=== PATIENT | male | born 1960 | race Caucasian/White ===

== ENCOUNTER → 2016-08-28 | Outpatient (CLI) | payer MEDICARE, BC ==
[2016-08-28 11:25] LABS: Anion Gap 9 mmol/L; Blood Urea Nitrogen 22 mg/dL (9-20); Carbon Dioxide 25 mmol/L (22-30); Chloride 111 mmol/L (98-107); Non-African American GFR(MDRD) >60 (>60 ml/min/1.73 sqM); Potassium 4.9 mmol/L (3.5-5.1); Sodium 145 mmol/L (137-145)
== END | disposition home or self-care (01) ==
LOC: LABWHC1 10:52
PROVIDERS: ATTEND Internal Medicine Clinical Cardiac Electrophysiology
DX: I47.2 Ventricular tachycardia (principal)
CPT/HCPCS: 36415; 80051; 82565; 84520

== ENCOUNTER → 2017-03-17 | Outpatient (CLI) | payer MEDICARE, BC ==
[2017-03-17 12:16] LABS: CH 31.2; CHCM 33.2; HCT 46.1 % (39.0-53.0); HDW 2.28; HGB 15.6 gm/dL (13.0-17.5); MCH 32.1 pg (25.0-35.0); MCHC 33.9 g/dL (31.0-37.0); MCV 94.6 fL (80.0-100.0); Mean Platelet Volume 7.9; RBC 4.88 m/uL (4.30-5.90); WBC 7.8 k/uL (3.8-10.6)
[2017-03-17 12:29] LABS: Anion Gap 8 mmol/L; Blood Urea Nitrogen 15 mg/dL (9-20); Calcium 9.3 mg/dL (8.4-10.2); Carbon Dioxide 26 mmol/L (22-30); Chloride 108 mmol/L (98-107); Glucose 98 mg/dL (74-99); Non-African American GFR(MDRD) >60 (>60 ml/min/1.73 sqM); Potassium 4.8 mmol/L (3.5-5.1); Sodium 142 mmol/L (137-145)
== END | disposition home or self-care (01) ==
LOC: LABWHC1 11:20
PROVIDERS: ATTEND Internal Medicine Clinical Cardiac Electrophysiology
DX: I47.2 Ventricular tachycardia (principal)
CPT/HCPCS: 36415; 80048; 85027

== ENCOUNTER 2017-03-31 06:04 | Day surgery (SDC) | payer MEDICARE, BC ==
[~2017-03-31 06:04] MED LIST: LACTATED RINGERS 1,000 ML IV SCH
[2017-03-31] MEDS ORDERED: ceFAZolin 2 GM in SODIUM CHLORIDE 0.9% 100 ML IVPB ONE (06:15)
[2017-03-31] MEDS ORDERED: SODIUM CHLORIDE 0.9% 1,000 ML IV ONE (06:39)
[2017-03-31] MEDS ORDERED: KETAMINE 10 MG/ML 20 ML VIAL ONE (07:23)
[2017-03-31] MEDS ORDERED: ePHEDrine SULFATE/0.9% NACL/PF 50 MG/5 ML SYRINGE IV ONE (07:23)
[2017-03-31] MEDS ORDERED: PROPOFOL 10 MG/ML 20 ML VIAL IV ONE (07:23)
[2017-03-31] MEDS ORDERED: fentaNYL (PF) 50 MCG/ML 2 ML AMP ONE (07:23)
[2017-03-31] MEDS ORDERED: MIDAZOLAM 2 MG/2 ML VIAL ONE (07:23)
[2017-03-31] MEDS ORDERED: IOHEXOL 350 MG/ML 50ML BOTTLE INJ ONE (07:57)
[2017-03-31] MEDS ORDERED: VANCOMYCIN 2,000 MG in SODIUM CHLORIDE 0.9% 500 ML IVPB STA (08:08)
[2017-03-31] MEDS: ceFAZolin 1,000 MG in SODIUM CHLORIDE 0.9% IRRIGATIO 250 ML IRRIGATION ONE ×2 (08:19→08:58)
[2017-03-31] MEDS ORDERED: LIDOCAINE 1% INJ 10MG/ML (20 ML MDV) SQ ONE (08:22)
[2017-03-31] MEDS: LIDOCAINE 1% INJ 10MG/ML (20 ML MDV) SQ ONE ×2 (08:28→08:33)
[2017-03-31] MEDS ORDERED: ACETAMINOPHEN TAB 325 MG TAB PO PRN (09:21)
[2017-03-31] MEDS ORDERED: HYDROcodone/APAP 5-325MG 1 EACH TAB PO PRN (09:21)
[2017-03-31] MEDS ORDERED: ACETAMINOPHEN IV (For NPO) 1,000 MG in EMPTY BAG 1 BAG IVPB ONE (09:30)
--- NOTE | 2017-03-31 09:30 | P.PCN ---
Preoperative Diagnosis: Procedure Single chamber ICD implant Indication for the procedure Ischemic cardiomyopathy with a left ventricular ejection fraction chronically reduced at 30-35%, systolic, congestive heart failure class II, old large inferior lateral IA, coronary artery disease On guideline directed medical treatment for one year LV function remains reduced at 30-35% despite medical treatment Result Successful single chamber ICD implantation Defibrillation level at a below 10 J Device programmed according to the [employer] programming diameters with backup VVI pacing at 40 bpm Postoperative Diagnosis: Procedure(s) Performed: Implants: Indications for Procedure: Operative Findings: Description of Procedure:
[2017-03-31 12:05] VITALS: BMI 25.2
[2017-03-31] MEDS: ceFAZolin 2 GM in SODIUM CHLORIDE 0.9% 100 ML IVPB SCH ×2 (13:05→20:23)
--- NOTE | 2017-03-31 20:01 | PCN ---
The patient is a 57 -year-old male patient with ischemic cardiomyopathy on appropriate ( ) medical treatment. Left ventricular ejection fraction despite one year of medical treatment remains at 30 to 35%, Class II heart failure. He underwent single chamber ICD implant. PROCEDURE: The right pectoral area was prepped and draped as per protocol. 1% Lidocaine was used for local anesthesia. A 4 cm incision was made parallel to the deltopectoral groove and carried down to the level of the muscle. A subfascial pocket was made. Hemostasis was assured. The axillary vein on the right side was accessed with a single point and fluoroscopy via appropriately sized introducer sheaths. A single lead was positioned in the mid to low RV septum and screwed in. This was a [employer] 58 cm lead, single coil. Model #[id number]. Serial number [id number]. This was carried down to the ( ) muscle and then connected to the generator which was also secured to the muscle. [employer] [id number] serial number [id number]. The wound was then closed in three layers and dressed per protocol. DFT testing was performed under anesthesia. DC fib was used to induce ventricular fibrillation. This was adequately and appropriately detected at least sensitivity and successfully defibrillated with a 10 joule shock, charge time of 1.8 seconds, shock impedance of 56, there was no post shock noise. The device was then programmed to ( ) programming with appropriate ( ) pacing cardioversion defibrillation. Backup ( ) pacing at 40 beats a minute. RESULT: 1. Successful single chamber ICD implantation, primary for prevention of severe ischemic cardiomyopathy, ejection fraction 30 to 35% with chronic systolic dysfunction and Class II heart failure. 2. DFT at or below 10 joules. MTDD
[2017-03-31] MEDS ORDERED: ATORVASTATIN 80 MG TAB PO SCH (21:00)
[2017-03-31] MEDS ORDERED: LISINOPRIL 2.5 MG TAB PO SCH (21:00)
[2017-03-31] MEDS ORDERED: DIAZEPAM 5 MG TAB PO SCH (21:00)
[2017-03-31] MEDS: CARVEDILOL 3.125 MG TAB PO SCH (21:19)
[2017-03-31] MEDS: ASPIRIN 81 MG CHEW PO SCH (22:21)
[2017-03-31] MEDS: SODIUM CHLORIDE 0.9% 1,000 ML IV SCH ×2 (22:25→22:48)
[2017-03-31 23:45] VITALS: TEMP 97.8
[2017-04-01] MEDS: ceFAZolin 2 GM in SODIUM CHLORIDE 0.9% 100 ML IVPB SCH (01:47)
[2017-04-01 08:04] VITALS: BP 119/70; PULSE 50; RESP 18
--- NOTE | 2017-04-01 08:05 | XR ---
EXAMINATION TYPE: XR chest 2V DATE OF EXAM: 04/01/2017 COMPARISON: 05/03/2015 HISTORY: 57-year-old male lead placement check TECHNIQUE: Frontal and lateral views FINDINGS: Median sternotomy wires are present. Removal of previous left-sided 2-lead AICD. Heart is normal size . Aorta and pulmonary vasculature within normal limits. Some strandy areas of atelectasis mid and low er lungs. No consolidation or pleural effusion. Right anterior chest wall AICD generator with single right ventricular lead. IMPRESSION: Right-sided AICD with single right ventricular lead. No acute cardiopulmonary process.
[2017-04-01] MEDS: CARVEDILOL 3.125 MG TAB PO SCH (08:44)
[2017-04-01] MEDS: ASPIRIN 81 MG CHEW PO SCH (08:44)
--- NOTE | 2017-04-03 10:49 | PN ---
Mr. Lopez has severe ischemic cardiomyopathy and Class II heart failure symptoms. He underwent single chamber ICD yesterday. He is doing well from a cardiac standpoint. His vitals have been stable. He is showing no hematoma at the local site. Heart sounds normal. Breath sounds normal. Heart rates are in the 50s. Blood pressure 116/56 mmHg. PLAN: Discharge home today after device interrogation and chest x-ray and follow -up in the device clinic in five days and follow-up with me in about four months. No changes in medications. He will continue his current medications. Please note that he has a history of hyperkalemia and therefore, Spironolactone was discontinued. MTDD
--- NOTE | 2017-04-03 10:53 | MISC ---
Dear Jason: I had the pleasure of seeing . Dutch Lopez in electrophysiology follow up. As you know, Dutch had a history of coronary artery disease and an old inferolateral CO which was quite large. At that time, the artery was totally occluded and no intervention could be performed. His ejection fraction remains at 30-35% with Class II heart failure symptoms despite medical treatment for over a year and yesterday he underwent a single chamber ICD for prevention of sudden cardiac . He also has hyperkalemia and therefore Spironolactone was discontinued. All other cardiac medications have been continued. He will continue to follow up with you and myself in the device clinic as before. Thank you for entrusting us in the care of your patient. With warm regards, Sincerely, ARCADIO
== END 2017-04-01 11:06 | disposition home or self-care (01) ==
LOC: CATHEP 06:04 → 3OBS 09:17 → CATHEP 04-01 11:06
PROVIDERS: ATTEND Internal Medicine Clinical Cardiac Electrophysiology
DX: I25.5 Ischemic cardiomyopathy (principal); Z00.6 Encounter for examination for normal comparison and control in clinical research program; I47.2 Ventricular tachycardia; I11.0 Hypertensive heart disease with heart failure; I50.9 Heart failure, unspecified; Z82.49 Family history of ischemic heart disease and other diseases of the circulatory system; Z87.891 Personal history of nicotine dependence; E78.5 Hyperlipidemia, unspecified; Z79.82 Long term (current) use of aspirin; Z79.899 Other long term (current) drug therapy
CPT/HCPCS: 93641; 33249; 71020; C1892; C1722; C1777; J2250; J3370; J0690 ×3; J2001; J3010; J2704; Q9967

== ENCOUNTER → 2017-04-24 | Day surgery (SDC) | payer MEDICARE, BC ==
[2017-04-23 12:37] VITALS: BMI 25.0
[~2017-04-24] MED LIST changes: -LACTATED RINGERS 1,000 ML IV SCH; +LIDOCAINE 2% INJ 20 MG/ML SQ ONE; +MIDAZOLAM 2 MG/2 ML VIAL IV ONE; +MIDAZOLAM 2 MG/2 ML VIAL ONE; +SODIUM CHLORIDE 0.9% 1,000 ML IV SCH; +ceFAZolin 1,000 MG in SODIUM CHLORIDE 0.9% IRRIGATIO 1,000 ML IRRIGATION ONE; +ceFAZolin 1,000 MG in SODIUM CHLORIDE 0.9% IRRIGATIO 250 ML IRRIGATION ONE; +ceFAZolin 1,000 MG/50 ML BAG (PMX) IVPB ONE; +ceFAZolin 2 GM in SODIUM CHLORIDE 0.9% 100 ML IVPB ONE
[2017-04-24 16:51] VITALS: RESP 18
--- NOTE | 2017-04-24 19:18 | P.HPCAR ---
History of Present Illness 57-year-old male patient who underwent ICD implant. He came into the office for a follow-up check and a visit there was a little bit of the wounds/old blood from the lateral edge. On careful inspection it appeared that while there was no infection in the area there was definitely inflammation with seemed more consistent with Vicryl ALLERGY he has been exposed to Vicryl in the past He had no fever no chills Review of systems: No fever chills or rigors, no cough, phlegm or expectoration , no nausea, vomiting or diarrhea, no hematuria, dysuria, no musculoskeletal complaints, no strokes or seizures, no skin lesions. Past history of coronary artery disease severe ischemic cardiopathy ejection fraction 30% status post ICD implant right-sided Congestive heart failure class II Old large inferior posterior [place] On examination his vitals are stable. He's afebrile 98.3F, pulse rate in the 50s, respirations normal, blood pressure 150/70 mmHg Heart sounds S1 and S2 are normal no murmurs or gallops Breath sounds are normal no rhonchi no crackles Abdomen soft nontender Extremities warm no edema Local examination yesterday revealed a tiny little was from the lateral end of the incision with very tiny papular lesions in that area consistent with Vicryl ALLERGY Today the area does not have any bruising Plan In view of possible Vicryl ALLERGY and future risk of wound dehiscence I will apply external silk sutures to lateral edge of the incision IV antibiotics preoperatively The wound does not appear to be infected Physical Exam Vitals: Vital Signs Temp Pulse Resp BP Pulse Ox 04/24/17 16:50 98.3 F 50 L 18 152/70 98 Past Medical History Past Medical History: Hyperlipidemia, Hypertension, Myocardial Infarction ([place]), Osteoarthritis ([place]) Additional Past Medical History / Comment(s): ARTHRITIS PAIN LEFT HIP, SEE CARDIOLOGY H & P Last Myocardial Infarction Date:: OCTOBER 2014 History of Any Multi-Drug Resistant Organisms: None Reported Past Surgical History: AICD, Heart Catheterization, Joint Replacement Additional Past Surgical History / Comment(s): AICD rt chest [facility],prior AICD inserted and removal lt chest,TOTAL RIGHT HIP, HEART SURGERY AT [facility] Past Anesthesia/Blood Transfusion Reactions: No Reported Reaction, Family Hisory of Malignant Hyperthermia Additional Past Anesthesia/Blood Transfusion Reaction / Comment(s): 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 Type of Cardiac Device: AICD Device Placement Date:: 03-31-17 Smoking Status: Former smoker - Past Family History Mother Family Medical History: AICD/Pacemaker Father Family Medical History: Cancer, Pulmonary Embolus Physical Examination Vital Signs Temp Pulse Resp BP Pulse Ox 04/24/17 16:50 98.3 F 50 L 18 152/70 98 Results Current Medications Generic Name Dose Route Start Last Admin Trade Name Freq PRN Reason Stop Dose Admin Sodium Chloride 1,000 mls @ 20 mls/hr 04/24/17 12:00 04/24/17 16:51 Saline 0.9% IV 0 mls .Q24H EJSSICA Administration
--- NOTE | 2017-04-24 20:00 | P.PCN ---
Preoperative Diagnosis: Patient underwent EP procedure under conscious sedation/moderate sedation, monitoring of the level of consciousness and physiologic parameters including but not limited to vital signs and oxygenation. Patient tolerated the procedure well without any acute complications. Start time: 1926 Stop time: 1954 Procedure Incision closure/wound closure IV antibiotics administered. Local anesthesia Silk sutures applied to the lateral and of the ICD incision Wound dressed per protocol Postoperative Diagnosis: Procedure(s) Performed: Implants: Anesthesia: local, other Disposition: same day Indications for Procedure: Operative Findings: Description of Procedure:
[2017-04-24 20:29] VITALS: BP 135/79; PULSE 58; TEMP 98.2
== END ==
LOC: CATHEP 15:50
PROVIDERS: ATTEND Internal Medicine Clinical Cardiac Electrophysiology
DX: T85.79XA Infection and inflammatory reaction due to other internal prosthetic devices, implants and grafts, initial encounter (principal); Y81.3 Surgical instruments, materials and general- and plastic-surgery devices (including sutures) associated with adverse incidents; Z95.810 Presence of automatic (implantable) cardiac defibrillator; I50.9 Heart failure, unspecified; I25.2 Old myocardial infarction; Z88.8 Allergy status to other drugs, medicaments and biological substances; Z87.891 Personal history of nicotine dependence; Z96.641 Presence of right artificial hip joint
CPT/HCPCS: 12001; 99152; J2001; J2250; J0690

== ENCOUNTER 2017-06-19 16:51 | Inpatient (IN) | payer MEDICARE, BC ==
--- NOTE | 2017-06-19 16:20 | P.HPCAR ---
History of Present Illness Patient's called the office today stating that there was a swelling in relation to the ICD site in the right side. No fever no chills [place] if he was brought to the hospital and examined. There was a swelling localized at the medial border of the incision with redness around it. Patient no fever chills no rigors. No chest discomfort no undue shortness of breath Past history of ICD implant Wound dehiscence Cleaning of pocket and implantation of antibiotic and loop and closure of the pocket recently Severe ischemic cardio myopathy CAD Old inferior posterior [place] Review of systems: No fever chills or rigors, no cough, phlegm or expectoration , no nausea, vomiting or diarrhea, no hematuria, dysuria, no musculoskeletal complaints, no strokes or seizures, no skin lesions. Medication list includes aspirin atorvastatin carvedilol lisinopril On examination heart sounds are normal, breath sounds are normal, blood pressure is in the normal range heart sounds are regular and normal normal pulse rate Abdomen soft nontender no JVD no lower extremity edema Local examination reveals pustule in relation to the ICD site at the medial border of the incision Plan Pocket exploration and debridement and removal of ICD lead and generator IV antibiotics Labs 2-D echo and Doppler study to assess right-sided valves Infectious disease consult Likely PICC line and home IV antibiotics Vancomycin and Zosyn for now Dr. Figueroa has been consulted Physical Exam Vitals: Vital Signs Temp Pulse Resp BP Pulse Ox 06/19/17 13:03 98.0 F 70 18 139/80 99 Intake and Output 06/19/17 06/19/17 06/19/17 06:59 14:59 22:59 Other: Weight 75.296 kg Patient Weight 06/20/17 06:59 Weight 75.296 kg Past Medical History Past Medical History: Hyperlipidemia, Hypertension, Myocardial Infarction ([place]), Osteoarthritis ([place]) Additional Past Medical History / Comment(s): ARTHRITIS PAIN LEFT HIP, SEE CARDIOLOGY H & P Last Myocardial Infarction Date:: OCTOBER 2014 History of Any Multi-Drug Resistant Organisms: None Reported Past Surgical History: AICD, Heart Catheterization, Joint Replacement Additional Past Surgical History / Comment(s): AICD rt chest [facility],prior AICD inserted and removal lt chest,TOTAL RIGHT HIP, HEART SURGERY AT [facility] Past Anesthesia/Blood Transfusion Reactions: No Reported Reaction, Family Hisory of Malignant Hyperthermia Additional Past Anesthesia/Blood Transfusion Reaction / Comment(s): 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 Type of Cardiac Device: AICD Device Placement Date:: 03-31-17 Smoking Status: Former smoker - Past Family History Mother Family Medical History: AICD/Pacemaker Father Family Medical History: Cancer, Pulmonary Embolus Physical Examination Vital Signs Temp Pulse Resp BP Pulse Ox 06/19/17 13:03 98.0 F 70 18 139/80 99 Intake and Output 06/19/17 06/19/17 06/19/17 06:59 14:59 22:59 Other: Weight 75.296 kg Patient Weight 06/20/17 06:59 Weight 75.296 kg Results Current Medications Generic Name Dose Route Start Last Admin Trade Name Freq PRN Reason Stop Dose Admin Hydrocodone Bitart/Acetaminophen 1 each 06/19/17 16:13 [place] 7.5-325 PO Q6H PRN Pain Aspirin 81 mg 06/19/17 21:00 Aspirin PO BID JESSICA Atorvastatin Calcium 80 mg 06/19/17 21:00 Lipitor PO HS JESSICA Carvedilol 3.125 mg 06/19/17 21:00 Coreg PO BID JESSICA Furosemide 20 mg 06/20/17 09:00 Lasix IV DAILY JESSICA Hydromorphone HCl 0.5 mg 06/19/17 16:14 Dilaudid IVP Q6HR PRN Pain Piperacillin/Tazobactam/ 50 mls @ 12.5 mls/hr 06/19/17 16:00 Dextrose 3.375 gm/ IV Solution IVPB Q8HR JESSICA Vancomycin HCl 2,000 mg/ 500 mls @ 167 mls/hr 06/19/17 16:00 Sodium Chloride IVPB Q24H JESSICA Lisinopril 2.5 mg 06/19/17 21:00 Zestril PO HS EJSSICA Intake and Output 06/19/17 06/19/17 06/19/17 06:59 14:59 22:59 Other: Weight 75.296 kg Patient Weight 06/20/17 06:59 Weight 75.296 kg
--- NOTE | 2017-06-19 16:23 | P.PCN ---
Preoperative Diagnosis: Patient was brought to the [facility] in a fasting state. Written informed consent was obtained prior to the procedure Procedures performed under anesthesia, mac IV Kefzol 2 g administered just before the incision Left pectoral/that right pectoral area was prepped and draped as a protocol an incision was made over the pustule and pus, yellow looking, was drained Cultures were sent The entire incision was opened The device was explanted, generator The lead was unscrewed from the generator The lead was extracted with traction and counter clock rotation The pocket was debrided and washed The pocket was packed with gauze Wound was dressed Patient tolerated the procedure well without any acute complications
[~2017-06-19 16:51] MED LIST changes: +DIAZEPAM 5 MG TAB PO STA; +HYDROmorphone 0.5 MG/0.5 ML SYRINGE IVP PRN; +HYDROmorphone 1 MG/ML 1 ML SYRINGE IVP PRN; +LIDOCAINE 1% INJ 10MG/ML (20 ML MDV) ONE; +LIDOCAINE 1% INJ 10MG/ML (20 ML MDV) SQ ONE; -LIDOCAINE 2% INJ 20 MG/ML SQ ONE; -MIDAZOLAM 2 MG/2 ML VIAL IV ONE; +PROPOFOL 10 MG/ML 20 ML VIAL IV ONE; +VANCOMYCIN 2,000 MG in SODIUM CHLORIDE 0.9% 500 ML IVPB SCH; -ceFAZolin 1,000 MG in SODIUM CHLORIDE 0.9% IRRIGATIO 1,000 ML IRRIGATION ONE; -ceFAZolin 1,000 MG/50 ML BAG (PMX) IVPB ONE; +ceFAZolin IN SWFI 2 GM/20 ML SYRINGE IVP ONE; +fentaNYL (PF) 50 MCG/ML 2 ML AMP ONE
[2017-06-19] MEDS ORDERED: IV FLUID CONTINUATION 1,000 ML IV ONE (17:21)
[2017-06-19] MEDS: HYDROcodone/APAP 7.5-325MG 1 EACH TAB PO PRN ×2 (18:09→23:42)
[2017-06-19] MEDS: PIPERACILLIN-TAZOBACTAM 3.375 GM in DEXTROSE/WATER 1 50ML.BAG IVPB SCH ×2 (18:10→23:42)
[2017-06-19] MEDS: CARVEDILOL 3.125 MG TAB PO SCH (18:10)
[2017-06-19] MEDS: ASPIRIN 81 MG PO SCH (20:27)
[2017-06-19] MEDS: ATORVASTATIN 80 MG TAB PO SCH (20:27)
[2017-06-19] MEDS: LISINOPRIL 2.5 MG TAB PO SCH (20:27)
[2017-06-20 06:18] LABS: Basophils % (A) 0 %; CH 30.6; CHCM 31.8; Eosinophils # (A) 0.2 k/uL (0-0.7); Eosinophils % (A) 2 %; HCT 44.4 % (39.0-53.0); HDW 2.23; HGB 14.3 gm/dL (13.0-17.5); Luc # (Auto) 0.15; Luc % (Auto) 1; Lymphocytes # (A) 2.4 k/uL (1.0-4.8); Lymphocytes % (A) 23 %; MCH 31.1 pg (25.0-35.0); MCHC 32.1 g/dL (31.0-37.0); MCV 96.7 fL (80.0-100.0); Monocytes # (A) 0.9 k/uL (0-1.0); Monocytes % (A) 9 %; Neutrophils # (A) 6.7 k/uL (1.3-7.7); Neutrophils % (A) 64 %; RBC 4.59 m/uL (4.30-5.90); RDW 12.5 % (11.5-15.5); WBC 10.4 k/uL (3.8-10.6); WBC (Perox) 10.12
[2017-06-20 06:35] LABS: Anion Gap 6 mmol/L; Blood Urea Nitrogen 16 mg/dL (9-20); Calcium 9.1 mg/dL (8.4-10.2); Carbon Dioxide 23 mmol/L (22-30); Chloride 110 mmol/L (98-107); Glucose 85 mg/dL (74-99); Non-African American GFR(MDRD) >60 (>60 ml/min/1.73 sqM); Potassium 5.1 mmol/L (3.5-5.1); Sodium 139 mmol/L (137-145)
[2017-06-20] MEDS: CARVEDILOL 3.125 MG TAB PO SCH ×2 (06:37→19:48)
[2017-06-20] MEDS: PIPERACILLIN-TAZOBACTAM 3.375 GM in DEXTROSE/WATER 1 50ML.BAG IVPB SCH ×3 (08:10→23:34)
[2017-06-20] MEDS: FUROSEMIDE 10 MG/ML 2 ML VIAL IV SCH (08:10)
[2017-06-20] MEDS: ASPIRIN 81 MG PO SCH ×2 (08:10→20:18)
[2017-06-20] MEDS: HYDROcodone/APAP 7.5-325MG 1 EACH TAB PO PRN ×3 (08:11→20:14)
--- NOTE | 2017-06-20 08:20 | P.PN ---
Progress Note - Text Patient is doing well. He is afebrile sitting comfortably in bed looks well. White count is normal hemoglobin is normal electrolytes and normal Vitals are stable he's afebrile 97F, pulse rate 49, blood pressure 130/64 mmHg Heart sounds are normal Lungs are clear no rhonchi no crackles Right-sided ICD site explant was packed and therefore it is expected that there will be soakage Impression Ischemic cardio myopathy Status post left-sided ICD wound dehiscence and since the wound was completely open a full explanted to be performed in the past Status post right-sided ICD implant with wound dehiscence and now presenting with pocket infection Suggest IV vancomycin and IV Zosyn IV Lasix daily to avoid fluid overload Watch for fluid overload Continue cardiac medications Dr. Figueroa has been consulted Decision regarding antibiotics and duration of antibiotics will determine the need for PICC line The wound was packed I will performed secondary closure of the wound on Friday Patient will remain in the hospital for IV antibiotics 2-D echo has been ordered to look at the right-sided valves
--- NOTE | 2017-06-20 10:42 | P.CONS ---
History of Present Illness - Reason for Consult Consult date: 06/20/17 Device pocket infection - History of Present Illness This is a 57-year-old male patient that is known to ID service as he has had difficulties with a left anterior chest wall ICD pocket infection back in 2014 and that time was placed on daptomycin for 28 day course and the ICD was removed. Patient used a LifeVest for the past 2 years and on March 31 of this year, AICD was replaced on the right anterior chest wall. He states he started having leaking from the wound end of April early May. He had a recheck with Dr. Bonilla on the top of the wound site was reddened and a little tender. He denies having any fevers at home. He was then readily admitted to the hospital and underwent debridement and site was packed by Dr. Dejesus which was done yesterday. Patient is currently on vancomycin and Zosyn. He has been afebrile and white count is at 10.4. GFR greater than 60. Wound cultures were obtained during procedure yesterday and are in progress. He has now lost a total of 75 pounds, stop smoking and alcohol use since his myocardial infarction in October 2014. Review of Systems All systems: negative Constitutional: Denies chills, Denies fever Eyes: denies blurred vision, denies pain Ears, nose, mouth and throat: Denies headache, Denies sore throat Cardiovascular: Denies chest pain, Denies shortness of breath Respiratory: Denies cough Gastrointestinal: Denies abdominal pain, Denies diarrhea, Denies nausea, Denies vomiting Musculoskeletal: Denies myalgias Integumentary: Reports wounds, Denies pruritus, Denies rash Neurological: Denies numbness, Denies weakness Psychiatric: Denies anxiety, Denies depression Endocrine: Denies fatigue, Denies weight change Past Medical History Past Medical History: Hyperlipidemia, Hypertension, Myocardial Infarction ([place]), Osteoarthritis ([place]) Additional Past Medical History / Comment(s): ARTHRITIS PAIN LEFT HIP, SEE CARDIOLOGY H & P Last Myocardial Infarction Date:: OCTOBER 2014 History of Any Multi-Drug Resistant Organisms: None Reported Past Surgical History: AICD, Heart Catheterization, Joint Replacement Additional Past Surgical History / Comment(s): AICD rt chest [facility],prior AICD inserted and removal lt chest,TOTAL RIGHT HIP, HEART SURGERY AT [facility], removal of right chest AICD related to infection on 06/19/17. 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 Type of Cardiac Device: AICD Device Placement Date:: 03-31-17 Past Psychological History: No Psychological Hx Reported Additional Psychological History / Comment(s): . 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 Tobacco and alcohol use stopped in December 2014. No travel history. No animal exposures. Adult children are healthy. No current recreational drug use. Smoking Status: Former smoker Past Alcohol Use History: None Reported Additional Past Alcohol Use History / Comment(s): STARTED SMOKING AGE 14. QUIT SMOKING OCTOBER 2014. Patient is and lives at home with his . He works in manufacturing. No service. No travel history. No animal exposures. No current recreational drug use. Past Drug Use History: None Reported - Past Family History Mother Family Medical History: AICD/Pacemaker Father Family Medical History: Cancer, Pulmonary Embolus Medications and Allergies Home Medications Medication Instructions Recorded Confirmed Type Atorvastatin [Lipitor] 80 mg PO HS 04/28/15 06/21/17 History Carvedilol [Coreg] 3.125 mg PO BID 04/28/15 06/21/17 History Lisinopril [Zestril] 2.5 mg PO HS 04/28/15 06/21/17 History Aspirin EC [Ecotrin Low Dose] 81 mg PO BID 06/21/17 06/21/17 History Cefadroxil [Duricef] 500 mg PO Q12HR 10 Days #20 cap 06/23/17 Rx Allergies Allergy/AdvReac Type Severity Reaction Status Date / Time No Known Allergies Allergy Verified 04/24/17 16:12 Physical Exam Vitals: Vital Signs Temp Pulse Resp BP Pulse Ox 06/20/17 04:00 97.0 F L 49 L 16 130/64 98 06/20/17 00:00 96.9 F L 51 L 16 105/56 97 06/19/17 20:00 97.4 F L 53 L 18 115/61 97 06/19/17 19:00 97.0 F L 58 L 18 113/56 100 06/19/17 17:15 58 L 18 105/53 100 06/19/17 17:00 42 L 18 90/55 99 06/19/17 16:30 42 L 18 95/50 99 06/19/17 16:10 98.6 F 68 16 135/92 98 06/19/17 13:03 98.0 F 70 18 139/80 99 Intake and Output 06/19/17 06/20/17 06/20/17 22:59 06:59 14:59 Intake Total 337 550 240 Output Total 250 Balance 337 300 240 Intake: IV 100 550 Piperacillin-Tazobactam 3 50 .375 gm In Dextrose/Water 1 50ml.bag @ 12.5 mls/hr IVPB Q8HR JESSICA Rx#: [id number] Vancomycin 2,000 mg In 500 Sodium Chloride 0.9% 500 ml @ 167 mls/hr IVPB Q24H JESSICA Rx#:[id number] Oral 237 240 Output: Urine 250 Other: Voiding Method Urinal # Voids 1 Weight 76.7 kg Gen: This is a 57-year-old male. He is sitting up in bed and appears to be in no acute distress. HEENT: Head is atraumatic, normocephalic. Pupils equal, round. Sclerae is anicteric. Conjunctiva pink. Because members of the mouth are moist. No thrush noted. NECK: Supple. No JVD. No lymphadenopathy. No thyromegaly. LUNGS: Clear to auscultation. No wheezes or rhonchi. No intercostal retractions. HEART: Regular rate and rhythm. No murmur. Dressing in place to the right anterior upper chest wall which was not removed. ABDOMEN: Soft. Bowel sounds are present. No masses. No tenderness. EXTREMITIES: No pedal edema. No calf tenderness. Dorsalis pedis is +2 bilaterally. NEUROLOGICAL: Patient is awake, alert and oriented x3. Cranial nerves 2 through 12 are grossly intact. Results Results: Laboratory Results WBC 10.4 k/uL (3.8-10.6) 06/20/17 05:22 RBC 4.59 m/uL (4.30-5.90) 06/20/17 05:22 Hgb 14.3 gm/dL (13.0-17.5) 06/20/17 05:22 Hct 44.4 % (39.0-53.0) 06/20/17 05:22 MCV 96.7 fL (80.0-100.0) 06/20/17 05:22 MCH 31.1 pg (25.0-35.0) 06/20/17 05:22 MCHC 32.1 g/dL (31.0-37.0) 06/20/17 05:22 RDW 12.5 % (11.5-15.5) 06/20/17 05:22 Plt Count 147 k/uL (150-450) L 06/20/17 05:22 Neutrophils % 64 % 06/20/17 05:22 Lymphocytes % 23 % 06/20/17 05:22 Monocytes % 9 % 06/20/17 05:22 Eosinophils % 2 % 06/20/17 05:22 Basophils % 0 % 06/20/17 05:22 Neutrophils # 6.7 k/uL (1.3-7.7) 06/20/17 05:22 Lymphocytes # 2.4 k/uL (1.0-4.8) 06/20/17 05:22 Monocytes # 0.9 k/uL (0-1.0) 06/20/17 05:22 Eosinophils # 0.2 k/uL (0-0.7) 06/20/17 05:22 Basophils # 0.0 k/uL (0-0.2) 06/20/17 05:22 Sodium 139 mmol/L (137-145) 06/20/17 05:41 Potassium 5.1 mmol/L (3.5-5.1) 06/20/17 05:41 Chloride 110 mmol/L (98-107) H 06/20/17 05:41 Carbon Dioxide 23 mmol/L (22-30) 06/20/17 05:41 Anion Gap 6 mmol/L 06/20/17 05:41 BUN 16 mg/dL (9-20) 06/20/17 05:41 Creatinine 0.90 mg/dL (0.66-1.25) 06/20/17 05:41 Est GFR (MDRD) Af Amer >60 (>60 ml/min/1.73 sqM) 06/20/17 05:41 Est GFR (MDRD) Non-Af >60 (>60 ml/min/1.73 sqM) 06/20/17 05:41 Glucose 85 mg/dL (74-99) 06/20/17 05:41 Calcium 9.1 mg/dL (8.4-10.2) 06/20/17 05:41 CBC & Chem 7: 06/22/17 06:13 06/22/17 06:13 Labs: Abnormal Lab Results - Last 24 Hours (Table) 06/20/17 06/20/17 Range/Units 05:22 05:41 Plt Count 147 L (150-450) k/uL Chloride 110 H (98-107) mmol/L Microbiology - Last 24 Hours (Table) 06/19/17 15:27 Gram Stain - Preliminary Chest Wound Culture - Preliminary 06/19/17 15:27 Gram Stain - Preliminary Chest Wound Culture - Preliminary 06/19/17 15:27 Anaerobic Culture - Preliminary Chest 06/19/17 15:27 Anaerobic Culture - Preliminary Chest Assessment and Plan Plan: This is a 57-year-old male patient is known to ID service as he was treated previously for an ICD pocket infection back in 2014 and was treated with daptomycin for a 4 week course. Patient now presents with new ICD placed in March to the right upper anterior chest wall with concern for infection. Wound cultures have been obtained and are in progress. He is currently on vancomycin and Zosyn. Continue supportive care. Further recommend Asians as patient progresses. The above dictated assessment and findings were discussed with Dr. Figueroa. The impression and plan of care have been directed as dictated. Phyllis Donahue nurse practitioner acting as scribe for Dr. Figueroa.
[2017-06-20] MEDS: VANCOMYCIN 1,500 MG in SODIUM CHLORIDE 0.9% 250 ML IVPB SCH ×2 (11:30→20:19)
--- NOTE | 2017-06-20 12:57 | ECHOF ---
Referral Reason:look for TV and PV vegetation / intracardiac mass MEASUREMENTS -------- HEIGHT: 172.7 cm WEIGHT: 74.8 kg BP: 135/92 IVSd: 1.2 cm (0.6 - 1.1) LVIDd: 4.9 cm (3.9 - 5.3) LVPWd: 1.2 cm (0.6 - 1.1) IVSs: 1.6 cm LVIDs: 4.1 cm LVPWs: 1.2 cm LA Diam: 3.6 cm (2.7 - 3.8) Ao Diam: 3.0 cm (2.0 - 3.7) AV Cusp: 2.0 cm (1.5 - 2.6) LA Diam: 2.2 cm (2.7 - 3.8) MV EXCURSION: 25.054 mm (> 18.000) MV EF SLOPE: 134 mm/s (70 - 150) EPSS: 0.8 cm MV E Jerrell: 0.73 m/s MV DecT: 223 ms MV A Jerrell: 0.74 m/s MV E/A Ratio: 0.98 RAP: 5.00 mmHg RVSP: 23.82 mmHg FINDINGS -------- Sinus rhythm. This was a technically adequate study. The left ventricular size is normal. There is mild concentric left ventricular hypertrophy. Overa ll left ventricular systolic function is moderate-severely impaired with, an EF between 30 - 35 %. Basal inferior LV wall motion is akinetic. Basal inferoseptal LV wall motion is akinetic. Mid i nferior LV wall motion is akinetic. Apical inferior LV wall motion is akinetic. The right ventricle is normal in size. Normal LA size by volume 22+/-6 ml/m2. The right atrial size is normal. The aortic valve is trileaflet, and appears structurally normal. No aortic stenosis or regurgitation. The mitral valve is normal. Mild mitral regurgitation is present. Mild tricuspid regurgitation present. There is no evidence of pulmonary hypertension. The right v entricular systolic pressure, as measured by Doppler, is 23.82mmHg. Trace/mild (physiologic) pulmonic regurgitation. The aortic root size is normal. There is no pericardial effusion. CONCLUSIONS -------- 1. Sinus rhythm. 2. This was a technically adequate study. 3. There is mild concentric left ventricular hypertrophy. 4. Overall left ventricular systolic function is moderate-severely impaired with, an EF between 30 - 35 %. 5. Basal inferior LV wall motion is akinetic. 6. Basal inferoseptal LV wall motion is akinetic. 7. Mid inferior LV wall motion is akinetic. 8. Apical inferior LV wall motion is akinetic. 9. Normal LA size by volume 22+/-6 ml/m2. 10. The aortic valve is trileaflet, and appears structurally normal. No aortic stenosis or regurgitat ion. 11. Mild mitral regurgitation is present. 12. Mild tricuspid regurgitation present. 13. There is no evidence of pulmonary hypertension. 14. Trace/mild (physiologic) pulmonic regurgitation. 15. The aortic root size is normal. 16. There is no pericardial effusion. SUPERVISOR PIPELINES: Meron Lagos RDCS
--- NOTE | 2017-06-20 18:05 | P.CON ---
Consult Note - . Consult date: 06/20/17 Assessment/Plan:: This is a 57-year-old male patient that is known to ID service as he has had difficulties with a left anterior chest wall ICD pocket infection back in 2014 and that time was placed on daptomycin for 28 day course and the ICD was removed. Patient used a LifeVest for the past 2 years and on March 31 of this year, AICD was replaced on the right anterior chest wall. He states he started having leaking from the wound end of April early May. He had a recheck with Dr. Bonilla on the top of the wound site was reddened and a little tender. He denies having any fevers at home. He was then readily admitted to the hospital and underwent debridement and site was packed by Dr. Dejesus which was done yesterday. Patient is currently on vancomycin and Zosyn. He has been afebrile and white count is at 10.4. GFR greater than 60. Wound cultures were obtained during procedure yesterday and are in progress. He has now lost a total of 75 pounds, stop smoking and alcohol use since his myocardial infarction in October 2014. Please see the consult note as dictated by nurse practitioner Mrs.Judy Donahue. At this time this pleasant gentleman relates he is not feeling poorly. He is having minimal discomfort at the new AICD site. He is denying fevers chills rigors or sweats. He has noted his pleasant gentleman had difficulty with the prior AICD in the left anterior chest wall. He has been wearing a LifeVest for the last 24 months. Of note he does have a right total hip arthroplasty is in no difficulty with that site. As noted the currently blood cell count is normal. However protein levels will be need to be checked to ensure that he has adequate levels of protein for healing. With his weight loss I'm concerned that he has very poor proteins. The pacemaker material is an urgent however preparation materials for the skin and suture material are not. An are of some concern. A purulent material was found and has been cultured. Negative so far. Currently being treated with piperacillin tazobactam and vancomycin until further cultures are available. Local wound care has been initiated. Protein levels to be checked. Explantation may be required. We will monitor. I agree with evaluation, assessment and plan as dictated by nurse practitioner Mrs. Phyllis Donahue.
[2017-06-20] MEDS: LISINOPRIL 2.5 MG TAB PO SCH (20:18)
[2017-06-20] MEDS: ATORVASTATIN 80 MG TAB PO SCH (20:18)
[2017-06-20] MEDS: DOCUSATE 100 MG CAP PO SCH (21:29)
[2017-06-21] MEDS: VANCOMYCIN 1,500 MG in SODIUM CHLORIDE 0.9% 250 ML IVPB SCH ×2 (06:08→19:57)
[2017-06-21] MEDS: CARVEDILOL 3.125 MG TAB PO SCH ×2 (07:10→17:23)
[2017-06-21] MEDS: HYDROcodone/APAP 7.5-325MG 1 EACH TAB PO PRN (07:11)
[2017-06-21] MEDS: FUROSEMIDE 10 MG/ML 2 ML VIAL IV SCH (08:32)
[2017-06-21] MEDS: ASPIRIN 81 MG PO SCH ×2 (08:32→19:55)
--- NOTE | 2017-06-21 09:04 | PN ---
PROGRESS NOTE Mr. Lopez is doing well. He remains afebrile. He is sitting comfortably in a chair. No shortness of breath. No dizziness or lightheadedness. He has mild discomfort in the incision site. The ICD was explanted. This wound is now packed with gauze and I planned to secondarily close this incision in the next 1 to 2 days. His pulse rate is in the 50s. Blood pressure 111/55 mmHg. PHYSICAL EXAMINATION: On examination, breath sounds are clear. Heart sounds S1, S2 soft. No murmurs, rubs or gallops. Extremities warm no edema. A 2D echo report was reviewed. No obvious vegetations or masses. IMPRESSION: 1. Ischemic cardiomyopathy. 2. Congestive heart failure class 2. 3. Large inferior wall myocardial infarction. 4. Occasional nonsustained ventricular tachycardia. 5. Status post ICD explant for ICD pocket infection. The wound was debrided and packed and is on IV antibiotics at this time. PLAN: Is to continue IV Zosyn and IV vancomycin and continue aspirin, continue atorvastatin, continue carvedilol, Lasix 20 mg IV daily since he is getting fluids through the via his IV antibiotics and in the next 24-48 hours I plan to close the wound secondarily. Further antibiotic recommendations and duration of antibiotics and the route of antibiotic administration will be addressed by ID once the cultures available. Cultures are still pending. MMODL / IJN: [id number] /
[2017-06-21] MEDS: PIPERACILLIN-TAZOBACTAM 3.375 GM in DEXTROSE/WATER 1 50ML.BAG IVPB SCH ×3 (09:36→23:58)
[2017-06-21] MEDS: SODIUM CHLORIDE 0.9% 1,000 ML IV SCH (15:16)
--- NOTE | 2017-06-21 18:11 | P.PN ---
Subjective Progress Note Date: 06/21/17 Principal diagnosis: Pacemaker pocket site infection This is a 57-year-old male patient that is known to ID service as he has had difficulties with a left anterior chest wall ICD pocket infection back in 2014 and that time was placed on daptomycin for 28 day course and the ICD was removed. Patient used a LifeVest for the past 2 years and on March 31 of this year, AICD was replaced on the right anterior chest wall. He states he started having leaking from the wound end of April early May. He had a recheck with Dr. Bonilla on the top of the wound site was reddened and a little tender. He denies having any fevers at home. He was then readily admitted to the hospital and underwent debridement and site was packed by Dr. Dejesus which was done yesterday. Patient is currently on vancomycin and Zosyn. He has been afebrile and white count is at 10.4. GFR greater than 60. Wound cultures were obtained during procedure yesterday and are in progress. He has now lost a total of 75 pounds, stop smoking and alcohol use since his myocardial infarction in October 2014. Patient is feeling some better today. He has been seen by the liquid compounder. Plan will be to explant the device tomorrow. Cultures were determined our plan as far as antimicrobial therapy. Objective - Vital Signs Vital signs: Vital Signs Temp 97.8 F 06/21/17 16:00 Pulse 58 L 06/21/17 16:00 Resp 18 06/21/17 16:00 BP 123/66 06/21/17 16:00 Pulse Ox 95 06/21/17 16:00 Intake & Output 06/20/17 06/21/17 06/21/17 18:59 06:59 18:59 Intake Total 960 1080 828 Output Total 1100 500 400 Balance -140 580 428 Weight 76.6 kg Intake: IV 600 50 Piperacillin-Tazobactam 3 100 50 .375 gm In Dextrose/Water 1 50ml.bag @ 12.5 mls/hr IVPB Q8HR [facility] Rx#: [id number] Vancomycin 2,000 mg In 500 Sodium Chloride 0.9% 500 ml @ 167 mls/hr IVPB Q24H [facility] Rx#:[id number] Oral [phone] Output: Urine 1100 500 400 Other: Voiding Method Urinal Urinal Toilet Urinal # Voids 1 1 - Exam Gen: This is a 57-year-old male. He is sitting up in bed and appears to be in no acute distress. HEENT: Head is atraumatic, normocephalic. Pupils equal, round. Sclerae is anicteric. Conjunctiva pink. Because members of the mouth are moist. No thrush noted. NECK: Supple. No JVD. No lymphadenopathy. No thyromegaly. LUNGS: Clear to auscultation. No wheezes or rhonchi. No intercostal retractions. HEART: Regular rate and rhythm. No murmur. Dressing in place to the right anterior upper chest wall which was not removed. There is bloody drainage on his dressing. ABDOMEN: Soft. Bowel sounds are present. No masses. No tenderness. EXTREMITIES: No pedal edema. No calf tenderness. Dorsalis pedis is +2 bilaterally. NEUROLOGICAL: Patient is awake, alert and oriented x3 - Labs CBC & Chem 7: 06/20/17 05:22 06/20/17 05:41 Labs: Abnormal Lab Results - Last 24 Hours (Table) 06/20/17 Range/Units 05:41 Albumin 3.2 L (3.5-5.0) g/dL Microbiology - Last 24 Hours (Table) 06/19/17 15:27 Gram Stain - Preliminary Chest Wound Culture - Preliminary 06/19/17 15:27 Gram Stain - Preliminary Chest Wound Culture - Preliminary Laboratory Results WBC 10.4 k/uL (3.8-10.6) 06/20/17 05:22 RBC 4.59 m/uL (4.30-5.90) 06/20/17 05:22 Hgb 14.3 gm/dL (13.0-17.5) 06/20/17 05:22 Hct 44.4 % (39.0-53.0) 06/20/17 05:22 MCV 96.7 fL (80.0-100.0) 06/20/17 05:22 MCH 31.1 pg (25.0-35.0) 06/20/17 05:22 MCHC 32.1 g/dL (31.0-37.0) 06/20/17 05:22 RDW 12.5 % (11.5-15.5) 06/20/17 05:22 Plt Count 147 k/uL (150-450) L 06/20/17 05:22 Neutrophils % 64 % 06/20/17 05:22 Lymphocytes % 23 % 06/20/17 05:22 Monocytes % 9 % 06/20/17 05:22 Eosinophils % 2 % 06/20/17 05:22 Basophils % 0 % 06/20/17 05:22 Neutrophils # 6.7 k/uL (1.3-7.7) 06/20/17 05:22 Lymphocytes # 2.4 k/uL (1.0-4.8) 06/20/17 05:22 Monocytes # 0.9 k/uL (0-1.0) 06/20/17 05:22 Eosinophils # 0.2 k/uL (0-0.7) 06/20/17 05:22 Basophils # 0.0 k/uL (0-0.2) 06/20/17 05:22 Sodium 139 mmol/L (137-145) 06/20/17 05:41 Potassium 5.1 mmol/L (3.5-5.1) 06/20/17 05:41 Chloride 110 mmol/L (98-107) H 06/20/17 05:41 Carbon Dioxide 23 mmol/L (22-30) 06/20/17 05:41 Anion Gap 6 mmol/L 06/20/17 05:41 BUN 16 mg/dL (9-20) 06/20/17 05:41 Creatinine 0.90 mg/dL (0.66-1.25) 06/20/17 05:41 Est GFR (MDRD) Af Amer >60 (>60 ml/min/1.73 sqM) 06/20/17 05:41 Est GFR (MDRD) Non-Af >60 (>60 ml/min/1.73 sqM) 06/20/17 05:41 Glucose 85 mg/dL (74-99) 06/20/17 05:41 Calcium 9.1 mg/dL (8.4-10.2) 06/20/17 05:41 Albumin 3.2 g/dL (3.5-5.0) L 06/20/17 05:41 Microbiology 06/19/17 15:27 Chest Gram Stain - Preliminary 06/19/17 15:27 Chest Wound Culture - Preliminary 06/19/17 15:27 Chest Gram Stain - Preliminary 06/19/17 15:27 Chest Wound Culture - Preliminary 06/19/17 15:27 Chest Anaerobic Culture - Preliminary 06/19/17 15:27 Chest Anaerobic Culture - Preliminary Assessment and Plan (1) Wound dehiscence, internal operation Narrative/Plan: 57-year-old male presents to Hospital difficulties with his pacemaker right anterior chest wall. As noted has a fascinating history of a prior pacemaker placed in the left anterior chest wall. This failed and the device required explantation. In then had a 2 year cycle of life vest use. He has been now evaluated in a new pacemaker was placed to the right anterior chest wall. This also is failing. He will be explanted tomorrow. Cultures are in process. They hopefully will shed light upon our best possible course of antimicrobial therapy at the time of his completion of the procedure. Local wound care can be arranged depending on the results of the device removal. Pain control is adequate Protein level is low protein supplementations have been requested. He has had a significant change of his lifestyle has had a 75 pound weight loss. Although this is very helpful he does have very low proteins and will need supplement. Current Visit: No Status: Acute Code(s): T81.32XA - DISRUPTION OF INTERNAL OPERATION (SURGICAL) WOUND, NEC, INIT SNOMED Code(s): 94251157
[2017-06-21] MEDS: ATORVASTATIN 80 MG TAB PO SCH (19:55)
[2017-06-21] MEDS: DOCUSATE 100 MG CAP PO SCH (19:55)
[2017-06-21] MEDS: LISINOPRIL 2.5 MG TAB PO SCH (19:55)
[2017-06-21] MEDS ORDERED: HYDROmorphone 1 MG/ML 1 ML SYRINGE IVP PRN (21:57)
[2017-06-22] MEDS: CARVEDILOL 3.125 MG TAB PO SCH ×2 (06:07→16:59)
[2017-06-22] MEDS: VANCOMYCIN 1,500 MG in SODIUM CHLORIDE 0.9% 250 ML IVPB SCH ×2 (06:07→21:17)
[2017-06-22] MEDS: ASPIRIN 81 MG PO SCH ×2 (06:08→21:17)
[2017-06-22 06:41] LABS: Basophils % (A) 0 %; CHCM 32.5; Eosinophils # (A) 0.3 k/uL (0-0.7); Eosinophils % (A) 4 %; HCT 46.7 % (39.0-53.0); HDW 2.28; HGB 15.3 gm/dL (13.0-17.5); Luc # (Auto) 0.12; Luc % (Auto) 2; Lymphocytes # (A) 2.5 k/uL (1.0-4.8); Lymphocytes % (A) 33 %; MCH 31.3 pg (25.0-35.0); MCHC 32.7 g/dL (31.0-37.0); MCV 95.6 fL (80.0-100.0); Mean Platelet Volume 7.4; Monocytes # (A) 0.5 k/uL (0-1.0); Monocytes % (A) 7 %; Neutrophils # (A) 4.2 k/uL (1.3-7.7); Neutrophils % (A) 55 %; RBC 4.88 m/uL (4.30-5.90); RDW 12.5 % (11.5-15.5); WBC 7.7 k/uL (3.8-10.6); WBC (Perox) 7.82
[2017-06-22 06:45] LABS: Anion Gap 9 mmol/L; Blood Urea Nitrogen 11 mg/dL (9-20); Calcium 9.7 mg/dL (8.4-10.2); Carbon Dioxide 25 mmol/L (22-30); Chloride 109 mmol/L (98-107); Glucose 99 mg/dL (74-99); Non-African American GFR(MDRD) >60 (>60 ml/min/1.73 sqM); Potassium 4.5 mmol/L (3.5-5.1); Sodium 143 mmol/L (137-145)
[2017-06-22 06:46] LABS: Glucose,Whole Blood 80 mg/dL (75-99)
[2017-06-22] MEDS ORDERED: fentaNYL (PF) 50 MCG/ML 2 ML AMP ONE (07:05)
[2017-06-22] MEDS ORDERED: MIDAZOLAM 2 MG/2 ML VIAL ONE (07:05)
[2017-06-22] MEDS ORDERED: PROPOFOL 10 MG/ML 20 ML VIAL IV ONE (07:05)
[2017-06-22] MEDS ORDERED: SODIUM CHLORIDE 0.9% 500 ML IV ONE (07:39)
[2017-06-22] MEDS ORDERED: IV FLUID CONTINUATION 500 ML IV ONE (07:39)
[2017-06-22] MEDS: PIPERACILLIN-TAZOBACTAM 3.375 GM in DEXTROSE/WATER 1 50ML.BAG IVPB SCH ×3 (08:42→23:29)
[2017-06-22] MEDS: FUROSEMIDE 10 MG/ML 2 ML VIAL IV SCH (08:42)
--- NOTE | 2017-06-22 08:42 | P.PN ---
Subjective Principal diagnosis: Patient is doing well. No chest discomfort no dizziness or lightheadedness. Afebrile no chills no cough or expectoration He is afebrile 97.3F, pulse rate in the 40s to 60s sinus. Blood pressure 126/ 65 mmHg normal respirations nonlabored breath sounds are equal bilaterally no rhonchi no crackles heart sounds are soft no murmurs abdomen soft Extended is warm no edema Impression Ischemic cardio myopathy ICD pocket infection, right-sided Previously left-sided pocket infection about 1-2 years back CAD Old inferior posterior RI Class II CHF Status post extraction of the ICD lead and explantation of the generator and debridement of the wound and packing few days back Low protein Anaerobic culture: No isolates No organisms noted on Gram stain Aerobic culture: no growth after 48 hours This is not unexpected since he had an antibiotic envelope, within the pocket, within which the ICD generator and leads were housed Labs are reviewed today white count is still 7.7, hemoglobin 15.3, electrolytes normal vancomycin trough 16 albumin is 3.2 Today Patient was brought to the EP lab in a fasting state. Written informed consent was obtained from the procedure patient was already on IV antibiotics. The right pectoral area was prepped and draped per protocol the was then impacted into the wound was removed. The wound was cleaned and flushed with saline Thereafter mattress sutures were applied and the wound was closed secondarily in a single layer. Tension relieving nylon sutures were also applied Wound was dressed per protocol Impression Wound debridement followed by secondary closure Plan Continue antibiotics, iv Await final recommendations regarding duration and doses of antibiotics 2-D echo does not show any evidence for any masses associated with the valves LifeVest PICC line only if he needs outpatient IV antibiotics Objective - Vital Signs Vital signs: Vital Signs Temp 97.3 F L 06/22/17 04:00 Pulse 47 L 06/22/17 04:00 Resp 18 06/22/17 04:00 BP 126/65 06/22/17 04:00 Pulse Ox 98 06/22/17 04:00 Intake & Output 06/21/17 06/22/17 06/22/17 19:59 06:59 18:59 Intake Total 100 Output Total Balance 100 Weight Intake: IV 100 Piperacillin-Tazobactam 3 .375 gm In Dextrose/Water 1 50ml.bag @ 12.5 mls/hr IVPB Q8HR [facility] Rx#: [id number] Oral Output: Urine Other: Voiding Method # Voids 0 - Labs CBC & Chem 7: 06/22/17 06:13 06/22/17 06:13 Labs: Abnormal Lab Results - Last 24 Hours (Table) 06/22/17 Range/Units 06:13 Chloride 109 H (98-107) mmol/L Microbiology - Last 24 Hours (Table) 06/19/17 15:27 Anaerobic Culture - Preliminary Chest 06/19/17 15:27 Anaerobic Culture - Preliminary Chest 06/19/17 15:27 Gram Stain - Final Chest Wound Culture - Final 06/19/17 15:27 Gram Stain - Final Chest Wound Culture - Final
[2017-06-22] MEDS: HYDROcodone/APAP 7.5-325MG 1 EACH TAB PO PRN ×3 (08:50→21:17)
[2017-06-22] MEDS: SODIUM CHLORIDE 0.9% 1,000 ML IV SCH (16:58)
--- NOTE | 2017-06-22 20:44 | P.PN ---
Subjective Progress Note Date: 06/22/17 Principal diagnosis: Pacemaker pocket site infection This is a 57-year-old male patient that is known to ID service as he has had difficulties with a left anterior chest wall ICD pocket infection back in 2014 and that time was placed on daptomycin for 28 day course and the ICD was removed. Patient used a LifeVest for the past 2 years and on March 31 of this year, AICD was replaced on the right anterior chest wall. He states he started having leaking from the wound end of April early May. He had a recheck with Dr. Bonilla on the top of the wound site was reddened and a little tender. He denies having any fevers at home. He was then readily admitted to the hospital and underwent debridement and site was packed by Dr. Dejesus which was done yesterday. Patient is currently on vancomycin and Zosyn. He has been afebrile and white count is at 10.4. GFR greater than 60. Wound cultures were obtained during procedure yesterday and are in progress. He has now lost a total of 75 pounds, stop smoking and alcohol use since his myocardial infarction in October 2014. Patient is feeling some better today. He has been seen by the eyeglass lens grinder. The device has been explanted and deep cultures of been obtained. Cultures were determined our plan as far as antimicrobial therapy. Please clarify that prior to being explanted the area had been cleansed and the antibiotic sleeve applied in attempt to salvage. Surgical no relates that the pacemaker had broken free from its tethering similar to what happened to the other site. Objective - Vital Signs Vital signs: Vital Signs Temp 98.5 F 06/22/17 16:00 Pulse 60 06/22/17 16:00 Resp 18 06/22/17 16:00 BP 118/58 06/22/17 16:00 Pulse Ox 96 06/22/17 16:00 Intake & Output 06/22/17 06/22/17 06/23/17 06:59 18:59 06:59 Intake Total 517 Output Total 600 Balance -83 Weight Intake: IV 100 Oral 417 Output: Urine 600 Other: Voiding Method Toilet Urinal # Voids 0 - Exam Gen: This is a 57-year-old male. He is sitting up in bed and appears to be in no acute distress. HEENT: Head is atraumatic, normocephalic. Pupils equal, round. Sclerae is anicteric. Conjunctiva pink. Because members of the mouth are moist. No thrush noted. NECK: Supple. No JVD. No lymphadenopathy. No thyromegaly. LUNGS: Clear to auscultation. No wheezes or rhonchi. No intercostal retractions. HEART: Regular rate and rhythm. No murmur. Dressing is in place to the right upper chest wall from where the closure has occurred today. ABDOMEN: Soft. Bowel sounds are present. No masses. No tenderness. EXTREMITIES: No pedal edema. No calf tenderness. Dorsalis pedis is +2 bilaterally. NEUROLOGICAL: Patient is awake, alert and oriented x3 - Labs CBC & Chem 7: 06/22/17 06:13 06/22/17 06:13 Labs: Abnormal Lab Results - Last 24 Hours (Table) 06/22/17 Range/Units 06:13 Chloride 109 H (98-107) mmol/L Microbiology - Last 24 Hours (Table) 06/19/17 15:27 Anaerobic Culture - Preliminary Chest 06/19/17 15:27 Anaerobic Culture - Preliminary Chest 06/19/17 15:27 Gram Stain - Final Chest Wound Culture - Final 06/19/17 15:27 Gram Stain - Final Chest Wound Culture - Final Laboratory Results WBC 7.7 k/uL (3.8-10.6) 06/22/17 06:13 RBC 4.88 m/uL (4.30-5.90) 06/22/17 06:13 Hgb 15.3 gm/dL (13.0-17.5) 06/22/17 06:13 Hct 46.7 % (39.0-53.0) 06/22/17 06:13 MCV 95.6 fL (80.0-100.0) 06/22/17 06:13 MCH 31.3 pg (25.0-35.0) 06/22/17 06:13 MCHC 32.7 g/dL (31.0-37.0) 06/22/17 06:13 RDW 12.5 % (11.5-15.5) 06/22/17 06:13 Plt Count 163 k/uL (150-450) 06/22/17 06:13 Neutrophils % 55 % 06/22/17 06:13 Lymphocytes % 33 % 06/22/17 06:13 Monocytes % 7 % 06/22/17 06:13 Eosinophils % 4 % 06/22/17 06:13 Basophils % 0 % 06/22/17 06:13 Neutrophils # 4.2 k/uL (1.3-7.7) 06/22/17 06:13 Lymphocytes # 2.5 k/uL (1.0-4.8) 06/22/17 06:13 Monocytes # 0.5 k/uL (0-1.0) 06/22/17 06:13 Eosinophils # 0.3 k/uL (0-0.7) 06/22/17 06:13 Basophils # 0.0 k/uL (0-0.2) 06/22/17 06:13 Sodium 143 mmol/L (137-145) 06/22/17 06:13 Potassium 4.5 mmol/L (3.5-5.1) 06/22/17 06:13 Chloride 109 mmol/L (98-107) H 06/22/17 06:13 Carbon Dioxide 25 mmol/L (22-30) 06/22/17 06:13 Anion Gap 9 mmol/L 06/22/17 06:13 BUN 11 mg/dL (9-20) 06/22/17 06:13 Creatinine 0.84 mg/dL (0.66-1.25) 06/22/17 06:13 Est GFR (MDRD) Af Amer >60 (>60 ml/min/1.73 sqM) 06/22/17 06:13 Est GFR (MDRD) Non-Af >60 (>60 ml/min/1.73 sqM) 06/22/17 06:13 Glucose 99 mg/dL (74-99) 06/22/17 06:13 POC Glucose (mg/dL) 80 mg/dL (75-99) 06/22/17 06:07 POC Glu Locomotive Oiler EVE Estrellam Remedios 06/22/17 06:07 Calcium 9.7 mg/dL (8.4-10.2) 06/22/17 06:13 Albumin 3.2 g/dL (3.5-5.0) L 06/20/17 05:41 Prealbumin 21.0 mg/dL (18.0-42.0) 06/20/17 05:41 Vancomycin Trough 16.0 ug/mL 06/22/17 06:13 Microbiology 06/19/17 15:27 Chest Anaerobic Culture - Preliminary 06/19/17 15:27 Chest Anaerobic Culture - Preliminary 06/19/17 15:27 Chest Gram Stain - Final 06/19/17 15:27 Chest Wound Culture - Final 06/19/17 15:27 Chest Gram Stain - Final 06/19/17 15:27 Chest Wound Culture - Final Assessment and Plan (1) Wound dehiscence, internal operation Narrative/Plan: 57-year-old male presents to Hospital difficulties with his pacemaker right anterior chest wall. As noted has a fascinating history of a prior pacemaker placed in the left anterior chest wall. This failed and the device required explantation. In then had a 2 year cycle of life vest use. He has been now evaluated in a new pacemaker was placed to the right anterior chest wall. This also is failing. He will be explanted tomorrow. Cultures are in process. They hopefully will shed light upon our best possible course of antimicrobial therapy at the time of his completion of the procedure. Local wound care can be arranged depending on the results of the device removal. Pain control is adequate Protein level is low protein supplementations have been requested. He has had a significant change of his lifestyle has had a 75 pound weight loss. As noted at this time we have negative cultures. Gram stains are negative, in no significant amount of purulent material was seen by Gram stain. At this time with the patient's lack of fever, no evidence of leukocytosis, and lack of significant signs of systemic infection appears to be a localized process. As noted above the patient does have what appears to be some poor protoplasm requiring the events that occurred up till the explantation of the pacemaker. It this time unless cultures become positive by tomorrow would plan a course of oral antimicrobial therapy. Patient instructed that if we do an oral course of therapy he would need to report back immediately if he develops fevers chills or any other difficulties. Outpatient blood work can be monitored. Current Visit: No Status: Acute Code(s): T81.32XA - DISRUPTION OF INTERNAL OPERATION (SURGICAL) WOUND, NEC, INIT SNOMED Code(s): 92258846
[2017-06-22] MEDS: ATORVASTATIN 80 MG TAB PO SCH (21:17)
[2017-06-22] MEDS: LISINOPRIL 2.5 MG TAB PO SCH (21:17)
[2017-06-22] MEDS: DOCUSATE 100 MG CAP PO SCH (21:21)
[2017-06-23] MEDS: VANCOMYCIN 1,500 MG in SODIUM CHLORIDE 0.9% 250 ML IVPB SCH ×2 (06:13→17:23)
[2017-06-23] MEDS: CARVEDILOL 3.125 MG TAB PO SCH ×2 (06:58→17:23)
[2017-06-23] MEDS: HYDROcodone/APAP 7.5-325MG 1 EACH TAB PO PRN (09:06)
[2017-06-23] MEDS: PIPERACILLIN-TAZOBACTAM 3.375 GM in DEXTROSE/WATER 1 50ML.BAG IVPB SCH ×2 (09:07→17:08)
[2017-06-23] MEDS: FUROSEMIDE 10 MG/ML 2 ML VIAL IV SCH (09:08)
[2017-06-23] MEDS: ASPIRIN 81 MG PO SCH (09:08)
[2017-06-23 09:56] VITALS: BMI 25.1
[2017-06-23] MEDS: SODIUM CHLORIDE 0.9% 1,000 ML IV SCH (15:39)
[2017-06-23 16:31] VITALS: BP 127/63; PULSE 52; RESP 20; TEMP 97.2
--- NOTE | 2017-06-23 17:26 | P.DS ---
Providers Date of admission: 06/21/17 09:50 Attending physician: Kuldip Dejesus Consults: 06/19/17 16:01 Consult Physician Routine Consulting Provider: Dutch Figueroa Reason/Comments: device pocket infection Do you want consulting provider notified?: Yes Primary care physician: Stated None Hospital Course: Patient is doing well. There is no soaking the dressing on the right pectoral area He is afebrile, completely symptomatic no chest pain or shortness of breath or dizziness lightheadedness Temperature 97.2F, pulse rate 52, blood pressure 127/63 mmHg Heart sounds S1 and S2 normal no murmurs no gallops Breath sounds are clear no rhonchi no crackles Normal respirations No lower extremity edema Impression Severe ischemic cardio myopathy Status post right-sided ICD, infected pocket status post explantation of the lead and the generator Wound was subsequently packed secondary closure after a few days Cultures completely negative Subsequently secondary closure was performed Seen by infectious disease service and oral antibiotics recommended 2-D echo did not show any masses or thrombi or vegetations Labs are normal white count is normal Plan Discharge home, continue cardiac medications, antibiotics per ID service follow- up on Friday in the device clinic Patient Condition at Discharge: Stable Plan - Discharge Summary New Discharge Prescriptions: No Action Atorvastatin [Lipitor] 80 mg PO HS Lisinopril [Zestril] 2.5 mg PO HS Carvedilol [Coreg] 3.125 mg PO BID Aspirin EC [Ecotrin Low Dose] 81 mg PO BID Discharge Medication List Atorvastatin [Lipitor] 80 mg PO HS 04/28/15 [History] Carvedilol [Coreg] 3.125 mg PO BID 04/28/15 [History] Lisinopril [Zestril] 2.5 mg PO HS 04/28/15 [History] Aspirin EC [Ecotrin Low Dose] 81 mg PO BID 06/21/17 [History] Follow up Appointment(s)/Referral(s): Kuldip Dejesus MD [STAFF PHYSICIAN] - 1 Week Patient Instructions/Handouts: Abscess Incision and Drainage (DC)
--- NOTE | 2017-06-23 21:11 | P.PN ---
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 Patient used a LifeVest for the past 2 years and on March 31 of this year, AICD was replaced on the right anterior chest wall. He states he started having leaking from the wound end of April early May. He had a recheck with Dr. Bonilla on the top of the wound site was reddened and a little tender. He denies having any fevers at home. He was then readily admitted to the hospital and underwent debridement and site was packed by Dr. Dejesus which was done yesterday. Patient is currently on vancomycin and Zosyn. He has been afebrile and white count is at 10.4. GFR greater than 60. Wound cultures were obtained during procedure yesterday and are in progress. He has now lost a total of 75 pounds, stop smoking and alcohol use since his myocardial infarction in October 2014. Patient is feeling some better today. He has been seen by the impression printer. The device has been explanted and deep cultures of been obtained. Cultures were determined our plan as far as antimicrobial therapy. Please clarify that prior to being explanted the area had been cleansed and the antibiotic sleeve applied in attempt to salvage. Surgical note relates that the pacemaker had broken free from its tethering similar to what happened to the other site. Patient is much improved today. Looking forward to going home. Objective - Vital Signs Vital signs: Vital Signs Temp 97.2 F L 06/23/17 15:25 Pulse 52 L 06/23/17 15:25 Resp 20 06/23/17 15:25 BP 127/63 06/23/17 15:25 Pulse Ox 99 06/23/17 15:25 Intake & Output 06/23/17 06/23/17 06/24/17 06:59 18:59 06:59 Intake Total 840 960 Output Total 200 600 Balance 640 360 Weight 74.9 kg 74.9 kg Intake: IV 100 Piperacillin-Tazobactam 3 100 .375 gm In Dextrose/Water 1 50ml.bag @ 12.5 mls/hr IVPB Q8HR [facility] Rx#: [id number] Intake, IV Titration 500 Amount Vancomycin 1,500 mg In 500 Sodium Chloride 0.9% 250 ml @ 125 mls/hr IVPB 0600 ,2000 JESSICA Rx#:[id number] Oral 240 960 Output: Urine 200 600 Other: Voiding Method Toilet Urinal # Voids 1 - Exam Gen: This is a 57-year-old male. He is sitting up in bed and appears to be in no acute distress. HEENT: Head is atraumatic, normocephalic. Pupils equal, round. Sclerae is anicteric. Conjunctiva pink. Because members of the mouth are moist. No thrush noted. NECK: Supple. No JVD. No lymphadenopathy. No thyromegaly. LUNGS: Clear to auscultation. No wheezes or rhonchi. No intercostal retractions. HEART: Regular rate and rhythm. No murmur. Dressing is in place to the right upper chest wall from where the closure has occurred the site is minimally tender. No expressible purulence. ABDOMEN: Soft. Bowel sounds are present. No masses. No tenderness. EXTREMITIES: No pedal edema. No calf tenderness. Dorsalis pedis is +2 bilaterally. NEUROLOGICAL: Patient is awake, alert and oriented x3 - Labs CBC & Chem 7: 06/22/17 06:13 06/22/17 06:13 Labs: Laboratory Results WBC 7.7 k/uL (3.8-10.6) 06/22/17 06:13 RBC 4.88 m/uL (4.30-5.90) 06/22/17 06:13 Hgb 15.3 gm/dL (13.0-17.5) 06/22/17 06:13 Hct 46.7 % (39.0-53.0) 06/22/17 06:13 MCV 95.6 fL (80.0-100.0) 06/22/17 06:13 MCH 31.3 pg (25.0-35.0) 06/22/17 06:13 MCHC 32.7 g/dL (31.0-37.0) 06/22/17 06:13 RDW 12.5 % (11.5-15.5) 06/22/17 06:13 Plt Count 163 k/uL (150-450) 06/22/17 06:13 Neutrophils % 55 % 06/22/17 06:13 Lymphocytes % 33 % 06/22/17 06:13 Monocytes % 7 % 06/22/17 06:13 Eosinophils % 4 % 06/22/17 06:13 Basophils % 0 % 06/22/17 06:13 Neutrophils # 4.2 k/uL (1.3-7.7) 06/22/17 06:13 Lymphocytes # 2.5 k/uL (1.0-4.8) 06/22/17 06:13 Monocytes # 0.5 k/uL (0-1.0) 06/22/17 06:13 Eosinophils # 0.3 k/uL (0-0.7) 06/22/17 06:13 Basophils # 0.0 k/uL (0-0.2) 06/22/17 06:13 Sodium 143 mmol/L (137-145) 06/22/17 06:13 Potassium 4.5 mmol/L (3.5-5.1) 06/22/17 06:13 Chloride 109 mmol/L (98-107) H 06/22/17 06:13 Carbon Dioxide 25 mmol/L (22-30) 06/22/17 06:13 Anion Gap 9 mmol/L 06/22/17 06:13 BUN 11 mg/dL (9-20) 06/22/17 06:13 Creatinine 0.84 mg/dL (0.66-1.25) 06/22/17 06:13 Est GFR (MDRD) Af Amer >60 (>60 ml/min/1.73 sqM) 06/22/17 06:13 Est GFR (MDRD) Non-Af >60 (>60 ml/min/1.73 sqM) 06/22/17 06:13 Glucose 99 mg/dL (74-99) 06/22/17 06:13 POC Glucose (mg/dL) 80 mg/dL (75-99) 06/22/17 06:07 POC Glu Front Desk Lead EVE Estrellam Remedios 06/22/17 06:07 Calcium 9.7 mg/dL (8.4-10.2) 06/22/17 06:13 Albumin 3.2 g/dL (3.5-5.0) L 06/20/17 05:41 Prealbumin 21.0 mg/dL (18.0-42.0) 06/20/17 05:41 Vancomycin Trough 16.0 ug/mL 06/22/17 06:13 Microbiology 06/19/17 15:27 Chest Anaerobic Culture - Preliminary 06/19/17 15:27 Chest Anaerobic Culture - Preliminary 06/19/17 15:27 Chest Gram Stain - Final 06/19/17 15:27 Chest Wound Culture - Final 06/19/17 15:27 Chest Gram Stain - Final 06/19/17 15:27 Chest Wound Culture - Final Assessment and Plan (1) Wound dehiscence, internal operation Narrative/Plan: 57-year-old male presents to Hospital difficulties with his pacemaker right anterior chest wall. As noted has a fascinating history of a prior pacemaker placed in the left anterior chest wall. This failed and the device required explantation. In then had a 2 year cycle of life vest use. He has been now evaluated in a new pacemaker was placed to the right anterior chest wall. This also is failing. He will be explanted tomorrow. Cultures are in process. They hopefully will shed light upon our best possible course of antimicrobial therapy at the time of his completion of the procedure. Local wound care can be arranged depending on the results of the device removal. Pain control is adequate Protein level is low protein supplementations have been requested. He has had a significant change of his lifestyle has had a 75 pound weight loss. As noted at this time we have negative cultures. Gram stains are negative, in no significant amount of purulent material was seen by Gram stain. At this time with the patient's lack of fever, no evidence of leukocytosis, and lack of significant signs of systemic infection appears to be a localized process. As noted above the patient does have what appears to be some poor protoplasm requiring the events that occurred up till the explantation of the pacemaker. Given the current improvement the patient will be placed on oral antimicrobial therapy with Duricef 500 mg orally every 12 hours for 7 days. He'll follow-up with a septic tank cleaner in the outpatient setting. He seems the office if he has any difficulties. Patient instructed that with the oral course of therapy he would need to report back immediately if he develops fevers chills or any other difficulties. Outpatient blood work can be monitored. Status: Acute Code(s): T81.32XA - DISRUPTION OF INTERNAL OPERATION (SURGICAL) WOUND, NEC, INIT SNOMED Code(s): 16193354
== END 2017-06-23 19:45 | disposition home or self-care (01) | DRG 908 ==
LOC: CATHEP 16:51 → 6SEL 16:51 → CATHEP 06-21 09:50
PROVIDERS: ADMIT Internal Medicine Clinical Cardiac Electrophysiology; ATTEND Internal Medicine Clinical Cardiac Electrophysiology
PROC: 0JPT0PZ Removal of Cardiac Rhythm Related Device from Trunk Subcutaneous Tissue and Fascia, Open Approach (ICD-10-PCS; principal; 2017-06-21)
PROC: 02PA0MZ Removal of Cardiac Lead from Heart, Open Approach (ICD-10-PCS; principal; 2017-06-21)
DX: T81.31XA Disruption of external operation (surgical) wound, not elsewhere classified, initial encounter (principal); T82.7XXA Infection and inflammatory reaction due to other cardiac and vascular devices, implants and grafts, initial encounter; I47.2 Ventricular tachycardia; I50.9 Heart failure, unspecified; I11.0 Hypertensive heart disease with heart failure; E78.5 Hyperlipidemia, unspecified; Y71.8 Miscellaneous cardiovascular devices associated with adverse incidents, not elsewhere classified; I25.10 Atherosclerotic heart disease of native coronary artery without angina pectoris; I25.2 Old myocardial infarction; I25.5 Ischemic cardiomyopathy; Z79.82 Long term (current) use of aspirin; Z79.899 Other long term (current) drug therapy; Z87.891 Personal history of nicotine dependence; Z96.641 Presence of right artificial hip joint
CPT/HCPCS: 12001; 33241; 33244; 80048; 80202; 82040; 84134; 85025; 87070; 87075; 87205; 93306